=== PATIENT | female | born 1990 | race African-American/Black ===

== ENCOUNTER 2024-08-01 10:07 | Emergency (ER) | payer OTHER ==
[2024-08-01 10:39] VITALS: BP 121/55; PULSE 76; RESP 16; TEMP 97.8; BMI 24.3
[2024-08-01 11:12] LABS: PH,URINE 6.5 (5.0-8.0); URINE APPEARANCE CLEAR; URINE BILIRUBIN NEGATIVE (NEGATIVE); URINE COLOR YELLOW; URINE GLUCOSE (UA) NEGATIVE (NEGATIVE); URINE KETONE NEGATIVE (NEGATIVE); URINE LEUK ESTERASE NEGATIVE (NEGATIVE); URINE NITRITE NEGATIVE (NEGATIVE); URINE PROTEIN NEGATIVE (NEGATIVE); URINE UROBILINOGEN 0.2 mg/dL (0.2-1.0)
[2024-08-01 11:22] LABS: HCG,QUALITATIVE URINE Negative
[2024-08-01 11:45] LABS: BASO % 0.5 % (0-2.0); EOS % 0.2 % (0-4.5); HEMATOCRIT 41.2 % (32.4-45.2); HEMOGLOBIN 13.4 GM/dL (10.7-15.3); LYMPH % 17.1 % (8-40); MCH 28.6 pg (25.7-33.7); MCHC 32.6 g/dl (32.0-36.0); MEAN CELL VOLUME 87.6 fl (80-96); MEAN PLT VOLUME 6.3 fl (7.5-11.1); MONO % 7.4 % (3.8-10.2); NEUT % 74.8 % (42.8-82.8); PLATELET COUNT 313 10^3/uL (134-434); RDW 14.4 % (11.6-15.6); WHITE BLOOD COUNT 8.8 K/mm3 (4.0-10.0)
[2024-08-01 12:37] LABS: POTASSIUM 4.6 mmol/L (3.5-5.1)
[2024-08-01 12:39] LABS: CALCIUM 9.9 mg/dL (8.5-10.1)
[2024-08-01 12:40] LABS: ALBUMIN 4.2 g/dl (3.4-5.0)
[2024-08-01 12:43] LABS: CREATININE 0.8 mg/dL (0.55-1.3)
[2024-08-01 12:45] LABS: BILIRUBIN,TOTAL 0.6 mg/dL (0.2-1); TOT PROT 6.9 g/dl (6.4-8.2)
== END 2024-08-01 13:20 | disposition home or self-care (01) ==
LOC: JER 10:07
DX: R42 Dizziness and giddiness (principal); N93.9 Abnormal uterine and vaginal bleeding, unspecified; R00.2 Palpitations; R53.83 Other fatigue
CPT/HCPCS: 36415; 80053; 81003; 84443; 84703; 85025; 86850; 86900; 86901; 87086; 93005; 93010; 99284-25